=== PATIENT | female | born 1945 | race Caucasian/White ===

== ENCOUNTER 2021-03-03 10:56 | Inpatient (IN) ==
[2021-03-03 12:43] LABS: Basophils % 0.4 % (0.0-0.8); Eosinophils # 0.2 10*3/uL (0.0-0.87); Eosinophils % 2.6 % (0.00-10.9); Hemoglobin 12.6 GM/DL (12.0-16.0); Immature Granulocytes % 0.3 %; Immature Granulocytes Absolute 0.02 #; Lymphocytes # 2.9 10*3/uL (1.4-4.0); Lymphocytes % 37.6 % (21.3-54.2); Mean Corpuscular HGB Conc 32.3 GM/DL (32-36); Mean Corpuscular Volume 103.4 FL (87-102); Mean Platelet Volume 9.9 FL (9.6-12.0); Monocytes % 16.1 % (1.7-12.7); Platelet Count 215 T/CUMM (130-400); Red Blood Count 3.77 MC/CUMM (3.8-5.5); Red Cell Distribution Width 12.6 % (9.3-17.3); White Blood Count 7.7 T/CUMM (4-12)
[2021-03-03 13:00] LABS: Alanine Aminotransferase 23 U/L (13-56); Albumin 3.8 G/DL (3.4-5.0); Alkaline Phosphatase 59 U/L (45-117); Aspartate Amino Transferase 28 U/L (0-37); Bilirubin,Total < 0.39 MG/DL (0.20-1.00); Blood Urea Nitrogen 13 MG/DL (7-18); Calcium 8.3 MG/DL (8.5-10.1); Carbon Dioxide 28 MMOL/L (21-32); Estimated Glom Filtration Rate 73 ML/MIN; Glucose 72 MG/DL (74-106); Osmolality,Calculated 273.7 MOS/KG (273-304); Potassium 4.2 MMOL/L (3.5-5.1); Sodium 138 MMOL/L (136-145); Total Protein 7.8 G/DL (6.4-8.2)
[2021-03-03 13:25] LABS: Anisocytosis 3+; Band Neutrophils 1 % (0-10); Eosinophils 1 % (0-10); Lymphocytes 39 % (20-55); Macrocytosis 3+; Microcytosis 1+; Segmented Neutrophils 50 % (50-85); Total Cells Counted 100
[2021-03-03 13:26] LABS: Atypical Lymphocytes Few; Platelet Estimate Normal; Polychromasia Slight
[2021-03-03] MEDS ORDERED: DEXTROSE 50% 25 GM/50 ML VIAL IV PRN ×2 (14:23)
[2021-03-03] MEDS ORDERED: GLUCAGON 1 MG VIAL IM PRN ×2 (14:23)
[2021-03-03] MEDS ORDERED: ALBUTEROL 2.5 MG/3 ML NEB RESP TX PRN (14:23)
[2021-03-03] MEDS ORDERED: ONDANSETRON 4 MG/2 ML VIAL IV PRN (14:23)
[2021-03-03] MEDS ORDERED: NITROGLYCERIN SL 0.4 MG TABLET SL PRN (14:29)
[2021-03-03] MEDS ORDERED: ERGOCALCIFEROL 50,000 UNIT CAPSULE PO SCH (14:30)
[2021-03-03] MEDS: INSULIN LISPRO 100 UNIT/ML SUBCUT SCH ×2 (16:54→21:10)
[2021-03-03] MEDS: PRIMIDONE 50 MG TABLET PO SCH ×2 (17:22→21:05)
[2021-03-03] MEDS: SUCRALFATE 1 GM TABLET PO SCH (21:06)
[2021-03-03] MEDS: traZODone 50 MG TABLET PO SCH (21:06)
[2021-03-03] MEDS: CARBIDOPA/LEVODOPA 25-100 MG TABLET PO SCH (21:06)
[2021-03-03] MEDS: GABAPENTIN 300 MG CAPSULE PO SCH (21:06)
[2021-03-04 04:58] LABS: Basophils % 0.6 % (0.0-0.8); Eosinophils # 0.2 10*3/uL (0.0-0.87); Eosinophils % 4.2 % (0.00-10.9); Hematocrit 38.6 VOL% (35.7-47.0); Hemoglobin 12.2 GM/DL (12.0-16.0); Immature Granulocytes % 0.2 %; Immature Granulocytes Absolute 0.01 #; Lymphocytes # 2.2 10*3/uL (1.4-4.0); Mean Corpuscular HGB Conc 31.6 GM/DL (32-36); Mean Corpuscular Volume 102.9 FL (87-102); Mean Platelet Volume 10.2 FL (9.6-12.0); Platelet Count 204 T/CUMM (130-400); Red Blood Count 3.75 MC/CUMM (3.8-5.5); Red Cell Distribution Width 12.7 % (9.3-17.3); White Blood Count 4.8 T/CUMM (4-12)
[2021-03-04 05:24] LABS: Calcium 8.6 MG/DL (8.5-10.1); Eosinophils 3 % (0-10); Hypochromasia 1+; Lymphocytes 51 % (20-55); Microcytosis 1+; Osmolality,Calculated 280.1 MOS/KG (273-304); Platelet Estimate Adequate; Potassium 4.9 MMOL/L (3.5-5.1); Segmented Neutrophils 25 % (50-85); Total Cells Counted 100
[2021-03-04 05:25] LABS: Atypical Lymphocytes Few
[2021-03-04] MEDS: CITALOPRAM 20 MG TABLET PO SCH (08:22)
[2021-03-04] MEDS: GABAPENTIN 300 MG CAPSULE PO SCH ×2 (08:22→20:30)
[2021-03-04] MEDS: CALCIUM (CARBONATE)/VITAMIN D 600 MG-400 UNIT TABLET PO SCH (08:22)
[2021-03-04] MEDS: MULTIVITAMIN (CENTRUM) TABLET PO SCH (08:22)
[2021-03-04] MEDS: EZETIMIBE 10 MG TABLET PO SCH (08:22)
[2021-03-04] MEDS: SUCRALFATE 1 GM TABLET PO SCH ×2 (08:22→20:31)
[2021-03-04] MEDS: PANTOPRAZOLE 40 MG TABLET PO SCH (08:22)
[2021-03-04] MEDS: MONTELUKAST 10 MG TABLET PO SCH (08:22)
[2021-03-04] MEDS: PRIMIDONE 50 MG TABLET PO SCH ×3 (08:22→20:31)
[2021-03-04] MEDS: CARBIDOPA/LEVODOPA 25-100 MG TABLET PO SCH ×2 (08:23→20:31)
[2021-03-04] MEDS: INSULIN LISPRO 100 UNIT/ML SUBCUT SCH ×4 (09:39→20:45)
[2021-03-04] MEDS: CLOPIDOGREL 75 MG TABLET PO SCH (14:04)
[2021-03-04] MEDS: ASPIRIN EC 81 MG TABLET PO SCH (14:04)
[2021-03-04] MEDS: traZODone 50 MG TABLET PO SCH (20:30)
[2021-03-04] MEDS ORDERED: diphenhydrAMINE 50 MG/1 ML VIAL IV ONE (22:39)
[2021-03-05 02:10] LABS: Basophils % 0.4 % (0.0-0.8); Eosinophils # 0.2 10*3/uL (0.0-0.87); Eosinophils % 4.7 % (0.00-10.9); Hematocrit 36.5 VOL% (35.7-47.0); Immature Granulocytes % 0.2 %; Immature Granulocytes Absolute 0.01 #; Lymphocytes # 2.3 10*3/uL (1.4-4.0); Lymphocytes % 51.3 % (21.3-54.2); Mean Corpuscular HGB Conc 32.9 GM/DL (32-36); Mean Corpuscular Volume 99.7 FL (87-102); Mean Platelet Volume 10.3 FL (9.6-12.0); Monocytes % 14.7 % (1.7-12.7); Neutrophils % 28.7 % (38.7-73.9); Platelet Count 195 T/CUMM (130-400); Red Blood Count 3.66 MC/CUMM (3.8-5.5); Red Cell Distribution Width 12.4 % (9.3-17.3); White Blood Count 4.5 T/CUMM (4-12)
[2021-03-05 02:29] LABS: Calcium 8.9 MG/DL (8.5-10.1); Osmolality,Calculated 276.5 MOS/KG (273-304); Potassium 3.9 MMOL/L (3.5-5.1)
[2021-03-05 02:47] LABS: Eosinophils 9 % (0-10); Lymphocytes 39 % (20-55); Segmented Neutrophils 34 % (50-85); Total Cells Counted 100
[2021-03-05 02:48] LABS: Atypical Lymphocytes Few; Hypochromasia 1+; Platelet Estimate Normal; Reactive Lymphocytes 1+
[2021-03-05] MEDS: INSULIN LISPRO 100 UNIT/ML SUBCUT SCH ×2 (08:06→13:18)
[2021-03-05] MEDS: SUCRALFATE 1 GM TABLET PO SCH (08:19)
[2021-03-05] MEDS: PRIMIDONE 50 MG TABLET PO SCH (08:19)
[2021-03-05] MEDS: CARBIDOPA/LEVODOPA 25-100 MG TABLET PO SCH (08:20)
[2021-03-05] MEDS: MULTIVITAMIN (CENTRUM) TABLET PO SCH (08:20)
[2021-03-05] MEDS: PANTOPRAZOLE 40 MG TABLET PO SCH (08:20)
[2021-03-05] MEDS: CLOPIDOGREL 75 MG TABLET PO SCH (08:20)
[2021-03-05] MEDS: MONTELUKAST 10 MG TABLET PO SCH (08:20)
[2021-03-05] MEDS: CALCIUM (CARBONATE)/VITAMIN D 600 MG-400 UNIT TABLET PO SCH (08:20)
[2021-03-05] MEDS: ASPIRIN EC 81 MG TABLET PO SCH (08:20)
[2021-03-05] MEDS: CITALOPRAM 20 MG TABLET PO SCH (08:20)
[2021-03-05] MEDS: GABAPENTIN 300 MG CAPSULE PO SCH (08:20)
[2021-03-05] MEDS: EZETIMIBE 10 MG TABLET PO SCH (08:44)
[2021-03-05 11:57] VITALS: BP 153/70
== END 2021-03-05 13:47 | disposition home or self-care (01) | DRG 373 ==
LOC: N.ED 10:56 → N.EDINP 14:20 → SUATTDRO 14:20 → N.EDINP 16:20 → N.5E 16:48
PROVIDERS: ADMIT Internal Medicine; ATTEND Internal Medicine